=== PATIENT | female | born 1955 | race American Indian/Alaskan Native ===

== ENCOUNTER 2017-11-19 05:16 | Emergency (ER) | payer OTHER ==
[2017-11-19 05:37] VITALS: BP 156/81; PULSE 62; RESP 18; TEMP 98.1; O2SAT 100
--- NOTE | 2017-11-19 05:48 | ED PDOC ---
Arrival/HPI - General Chief Complaint: Finger,Hand,&Wrist Time Seen by Provider: 11/19/17 05:39 Historian: Patient - History of Present Illness Narrative History of Present Illness (Text): 11/19/17 05:46 A 62 year old female presents to the emergency department complaining of right wrist pain. 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 Reports pain to palm and surface of wrist. Patient denies any other complaints at this time. Symptom Onset: Sudden Symptom Course: Unchanged Activities at Onset: Light Context: Work Past Medical History - Provider Review Nursing Documentation Reviewed: Yes - Psychiatric Hx Psychophysiologic Disorder: No Hx Substance Use: No Family/Social History - Physician Review Nursing Documentation Reviewed: Yes Family/Social History: No Known Family HX Smoking Status: Never Smoked Hx Alcohol Use: No Hx Substance Use: No Allergies/Home Meds Allergies/Adverse Reactions: Allergies No Known Allergies Allergy (Verified 11/19/17 05:53) Home Medications: Home Meds Medication Instructions Recorded Confirmed No Known Home Med 11/19/17 11/19/17 Review of Systems - Physician Review All systems were reviewed & negative as marked: Yes - Review of Systems Constitutional: absent: Fevers Musculoskeletal: Other (right wrist pain) Physical Exam Vital Signs Reviewed: Yes Vital Signs Temp Pulse Resp BP Pulse Ox 11/19/17 05:36 98.1 F 62 18 156/81 H 100 Temperature: Afebrile Blood Pressure: Hypertensive Pulse: Regular Respiratory Rate: Normal Appearance: Positive for: Well-Appearing, Non-Toxic, Comfortable Pain Distress: None Mental Status: Positive for: Alert and Oriented X 3 - Systems Exam Head: Present: Atraumatic, Normocephalic Pupils: Present: PERRL Extroacular Muscles: Present: EOMI Conjunctiva: Present: Normal Mouth: Present: Moist Mucous Membranes Neck: Present: Normal Range of Motion Respiratory/Chest: Present: Clear to Auscultation, Good Air Exchange. No: Respiratory Distress, Accessory Muscle Use Cardiovascular: Present: Regular Rate and Rhythm, Normal S1, S2. No: Murmurs Abdomen: Present: Normal Bowel Sounds. No: Tenderness, Distention, Peritoneal Signs Back: Present: Normal Inspection Upper Extremity: Present: Other (no right wrist tenderness; pain with ROM) Lower Extremity: Present: Normal Inspection. No: Edema Neurological: Present: GCS=15, CN II-XII Intact, Speech Normal Skin: Present: Warm, Dry, Normal Color. No: Rashes Psychiatric: Present: Alert, Oriented x 3, Normal Insight, Normal Concentration Medical Decision Making ED Course and Treatment: 11/19/17 05:45 Impression: A 62 year old female with right wrist pain. Plan: -- Radiology right wrist -- Radiology right hand -- Motrin -- Reassess and disposition Progress Notes: 11/19/17 06:30 Xray of right hand- No fractures or dislocations, as read by me. Xray of right wrist- No fracture or dislocations, as read by me. - RAD Interpretation Radiology Orders: 11/19/17 05:56 HAND RIGHT 3 VIEWS [RAD] Stat WRIST, RIGHT 3 VIEWS [RAD] Stat - Medication Orders Current Medication Orders: Discontinued Medications Ibuprofen (Motrin Tab) 800 mg PO STAT STA Stop: 11/19/17 05:56 Last Admin: 11/19/17 06:05 Dose: 800 mg - Scribe Statement The provider has reviewed the documentation as recorded by the Eliel Callejas Provider Scribe Attestation: All medical record entries made by the Scribe were at my direction and personally dictated by me. I have reviewed the chart and agree that the record accurately reflects my personal performance of the history, physical exam, medical decision making, and the department course for this patient. I have also personally directed, reviewed, and agree with the discharge instructions and disposition. Disposition/Present on Arrival - Present on Arrival Any Indicators Present on Arrival: No History of DVT/PE: No History of Uncontrolled Diabetes: No Urinary Catheter: No History of Decub. Ulcer: No History Surgical Site Infection Following: None - Disposition Have Diagnosis and Disposition been Completed?: Yes Diagnosis: Right wrist sprain Disposition: HOME/ ROUTINE Disposition Time: 06:34 Patient Plan: Discharge Condition: GOOD Discharge Instructions (ExitCare): Wrist Sprain (DC) Additional Instructions: Mrs Reyes- It was a pleasure to care for you today. Please wear the splint for protection. Follow up with orthopedics [[facility]] [phone]. Motrin is ok for pain. Return to us if any problems. Jaime- Dr. Troy Barreto Forms: [employer] (Amharic)
--- NOTE | 2017-11-19 08:08 | RAD ---
PROCEDURE: Right Hand Radiographs. HISTORY: ALTERCATION AT WORK COMPARISON: None. FINDINGS: BONES: No fracture JOINTS: Second and 3rd DIP arthritic changes - osteophytosis and tiny subcortical cysts SOFT TISSUES: Normal. OTHER FINDINGS: None. IMPRESSION: No fracture. No dislocation. Arthrosis
--- NOTE | 2017-11-19 08:10 | RAD ---
PROCEDURE: Right Wrist Radiographs. HISTORY: ALTERCATION AT WORK COMPARISON: None. FINDINGS: BONES: No fracture JOINTS: No dislocation. Tiny subarticular cyst at the triquetrum- 5th metatarsal base incidentally noted. SOFT TISSUES: Normal. OTHER FINDINGS: None. IMPRESSION: No fracture or dislocation
== END 2017-11-19 06:55 | disposition home or self-care (01) ==
LOC: ED 05:16
DX: S63.501A Unspecified sprain of right wrist, initial encounter (principal); X58.XXXA Exposure to other specified factors, initial encounter; Y92.239 Unspecified place in hospital as the place of occurrence of the external cause; Y99.0 Civilian activity done for income or pay

== ENCOUNTER 2018-08-01 19:23 | Emergency (ER) | payer MEDICAID, OTHER ==
[2018-08-01 19:23] VITALS: BMI 38.4
--- NOTE | 2018-08-01 19:37 | ED PDOC ---
Arrival/HPI - General Historian: Patient - History of Present Illness Narrative History of Present Illness (Text): 08/01/18 19:36 Patient is a 62 year old female with past medical history of major depressive disorder who presents to the emergency department s/p fall. Patient states that she was stepping out of the car when she fell on uneven pavement. She reports falling on her left knee and right hand. She denies any head trauma, or loss of consciousness. Currently reports having left knee pain, 7/10 on pain scale. Denies any radiation. Offers no other complaints at this time. Allergies: Penicillin Medications: Denies Medical History: Major depressive disorder Surgical History: Right knee surgery, hysterectomy, left lumpectomy Social History: Denies alcohol, tobacco, drug use Family History: Mother - ; Father - Time/Duration: Prior to Arrival Symptom Onset: Sudden Severity Level: 7 Context: Tripped <Valentina Hernandez - Last Filed: 08/01/18 21:31> <Kiko Medina - Last Filed: 08/02/18 03:15> - General Chief Complaint: Lower Extremity Problem/Injury Time Seen by Provider: 08/01/18 19:25 Past Medical History - Provider Review Nursing Documentation Reviewed: Yes - Tetanus Immunization Tetanus Immunization: Unknown - Cardiac Hx Cardiac Disorders: No - Pulmonary Hx Respiratory Disorders: No - Neurological Hx Neurological Disorder: No - HEENT Hx HEENT Disorder: No - Renal Hx Renal Disorder: No - Endocrine/Metabolic Hx Endocrine Disorders: No - Hematological/Oncological Hx Blood Disorders: No - Integumentary Hx Dermatological Disorder: No - Musculoskeletal/Rheumatological Hx Musculoskeletal Disorders: Yes ('PAIN IN RIGHT KNEE FOR ABOUT A YEAR") Hx Falls: No - Gastrointestinal Hx Gastrointestinal Disorders: No - Genitourinary/Gynecological Hx Genitourinary Disorders: No - Psychiatric Hx Psychophysiologic Disorder: No Hx Substance Use: No - Surgical History Hx Hysterectomy: Yes - Anesthesia Hx Anesthesia: Yes Hx Anesthesia Reactions: No Hx Malignant Hyperthermia: No <Valentina Hernandez - Last Filed: 08/01/18 21:31> Family/Social History - Physician Review Nursing Documentation Reviewed: Yes Family/Social History: Unknown Family HX Smoking Status: Never Smoked Hx Alcohol Use: Yes (Occasional) Hx Substance Use: No <Valentina Hernandez - Last Filed: 08/01/18 21:31> Allergies/Home Meds <Valentina Hernandez - Last Filed: 08/01/18 21:31> <Kiko Medina - Last Filed: 08/02/18 03:15> Allergies/Adverse Reactions: Allergies Penicillins Allergy (Verified 08/01/18 19:36) ANAPHYLAXIS Home Medications: Home Meds Medication Instructions Recorded Confirmed Ibuprofen [Motrin Tab] 200 mg PO PRN PRN 02/14/15 02/14/15 RX: Meloxicam 7.5 mg PO PRN PRN 02/14/15 02/14/15 Review of Systems - Physician Review All systems were reviewed & negative as marked: Yes - Review of Systems Constitutional: Normal. absent: Fatigue, Fevers Eyes: Normal. absent: Vision Changes ENT: Normal. absent: Hearing Changes Respiratory: Normal. absent: SOB, Cough, Wheezing Cardiovascular: Normal. absent: Chest Pain, Palpitations Gastrointestinal: Normal. absent: Abdominal Pain, Constipation, Diarrhea, Nausea, Vomiting Genitourinary Female: Normal. absent: Dysuria Musculoskeletal: Other (Knee pain) Neurological: Normal. absent: Headache, Dizziness <Valentina Hernandez - Last Filed: 08/01/18 21:31> Physical Exam Vital Signs Reviewed: Yes Temperature: Afebrile Blood Pressure: Hypertensive Pulse: Regular Respiratory Rate: Normal Appearance: Positive for: Well-Appearing, Comfortable Pain Distress: Mild Mental Status: Positive for: Alert and Oriented X 3 - Systems Exam Head: Present: Atraumatic, Normocephalic Extroacular Muscles: Present: EOMI Conjunctiva: Present: Normal Mouth: Present: Moist Mucous Membranes Respiratory/Chest: Present: Clear to Auscultation, Good Air Exchange. No: Respiratory Distress, Accessory Muscle Use Cardiovascular: Present: Regular Rate and Rhythm, Normal S1, S2 Abdomen: Present: Normal Bowel Sounds. No: Tenderness Upper Extremity: Present: Normal ROM, NORMAL PULSES, Other (Right hand: no abrasions, intact pulses hand ham curer strength 5/5). No: Cyanosis, Edema Lower Extremity: Present: NORMAL PULSES, Other (left knee: +skin abrasions, mild knee swelling, full ROM, ). No: CALF TENDERNESS Skin: Present: Warm, Dry, Normal Color Psychiatric: Present: Alert, Oriented x 3 <Valentina Hernandez - Last Filed: 08/01/18 21:31> Vital Signs Temp Pulse Resp BP Pulse Ox 08/01/18 21:40 98 F 76 18 159/70 H 98 08/01/18 19:23 98.1 F 62 18 163/90 H 99 <Kiko Medina - Last Filed: 08/02/18 03:15> Medical Decision Making ED Course and Treatment: 08/01/18 19:57 Patient seen and examined at bedside. Patient is s/p fall on her left knee and right hand. On exam she has left knee tenderness and swelling. We will order Left knee xray, right hand/wrist x ray, Motrin 600mg PO x 1. 08/01/18 21:15 Imaging reviewed. Skin abrasion on left knee cleaned with normal saline, bacitracin and bandaid applied. Patient discharged, instructed to follow up with PMD outpatient. - RAD Interpretation Narrative RAD Interpretations (Text): 08/01/18 21:15 Left Knee Xray: no acute fracture Right hand Xray: no acute fracture Right wrist Xray: no acute fracture Nursery Rn: ED Physician <Valentina Hernandez - Last Filed: 08/01/18 21:31> ED Course and Treatment: Seen and examined with resident. 62 y/o F p/w hand and knee pain s/p fall. On exam, L knee abrasion. - RAD Interpretation Radiology Orders: 08/01/18 19:49 HAND RIGHT 3 VIEWS [RAD] Stat KNEE LEFT 2 VIEWS (AP & LAT) [RAD] Stat WRIST, RIGHT 3 VIEWS [RAD] Stat - Medication Orders Current Medication Orders: Discontinued Medications Ibuprofen (Motrin Tab) 600 mg PO STAT STA Stop: 08/01/18 19:54 Last Admin: 08/01/18 20:21 Dose: 600 mg MAR Pain/Vitals Document 08/01/18 20:21 VIGNESH (Rec: 08/01/18 20:21 VIGNESH [id number]) Pain Reassessment Is This A Pain ReAssessment? Yes Location Left, Right or Bilateral Left Pain Location Body Site Knee Description Intermittent <Kiko Medina - Last Filed: 08/02/18 03:15> Disposition/Present on Arrival - Present on Arrival Any Indicators Present on Arrival: No History of DVT/PE: No History of Uncontrolled Diabetes: No Urinary Catheter: No History Surgical Site Infection Following: None - Disposition Have Diagnosis and Disposition been Completed?: Yes Disposition Time: 21:24 Patient Plan: Discharge <Valentina Hernandez - Last Filed: 08/01/18 21:31> <Kiko Medina - Last Filed: 08/02/18 03:15> - Disposition Diagnosis: Abrasion of left knee Disposition: HOME/ ROUTINE Condition: GOOD Discharge Instructions (ExitCare): Skin Abrasions, Wound Care (DC) Additional Instructions: - Keep wound clean, you can take motrin as needed for pain - Follow up with PMD outpatient Prescriptions: Ibuprofen [Motrin] 600 mg PO Q6H #12 tab Forms: [employer] (Emirati), WORK NOTE
[2018-08-01 19:38] VITALS: RESP 18
[2018-08-02 02:45] VITALS: BP 159/70; PULSE 76; TEMP 98; O2SAT 98
== END 2018-08-01 21:55 | disposition home or self-care (01) ==
LOC: ED 19:23
DX: S80.212A Abrasion, left knee, initial encounter (principal); W19.XXXA Unspecified fall, initial encounter; Y92.480 Sidewalk as the place of occurrence of the external cause

== ENCOUNTER 2019-01-06 19:53 | Emergency (ER) | payer OTHER ==
[2019-01-06 20:08] VITALS: BMI 31.6
[2019-01-06 20:13] VITALS: BP 155/85; PULSE 80; RESP 18; TEMP 98.6; O2SAT 99
--- NOTE | 2019-01-06 20:53 | ED PDOC ---
Arrival/HPI - General Chief Complaint: Lower Extremity Problem/Injury Time Seen by Provider: 01/06/19 20:14 Historian: Patient - History of Present Illness Narrative History of Present Illness (Text): 01/06/19 20:50 63 year old female who presents to the ED complaining of right knee pain today with associated swelling. Patient denies any recent trauma/injury. Patient notes she has a history of fluid in the knee in the past, which required drainage by an orthopedic surgeon at [facility] 3 years prior. Patient denies any fever, chills, numbness/weakness/tingling in the extremity, decreased range of motion, other injury, or any other complaints. Time/Duration: Other (today) Symptom Onset: Gradual Symptom Course: Unchanged Activities at Onset: Light Context: Home Past Medical History - Provider Review Nursing Documentation Reviewed: Yes - Tetanus Immunization Tetanus Immunization: Unknown - Cardiac Hx Cardiac Disorders: No - Pulmonary Hx Respiratory Disorders: No - Neurological Hx Neurological Disorder: No - HEENT Hx HEENT Disorder: No - Renal Hx Renal Disorder: No - Endocrine/Metabolic Hx Endocrine Disorders: No - Hematological/Oncological Hx Blood Disorders: No - Integumentary Hx Dermatological Disorder: No - Musculoskeletal/Rheumatological Hx Musculoskeletal Disorders: Yes ('PAIN IN RIGHT KNEE FOR ABOUT A YEAR") Hx Falls: No - Gastrointestinal Hx Gastrointestinal Disorders: No - Genitourinary/Gynecological Hx Genitourinary Disorders: No - Psychiatric Hx Psychophysiologic Disorder: No Hx Substance Use: No - Surgical History Hx Hysterectomy: Yes Hx Orthopedic Surgery: Yes (R knee) - Anesthesia Hx Anesthesia: Yes Hx Anesthesia Reactions: No Hx Malignant Hyperthermia: No Family/Social History - Physician Review Nursing Documentation Reviewed: Yes Family/Social History: Unknown Family HX Smoking Status: Never Smoked Hx Alcohol Use: Yes (Occasional) Frequency of alcohol use: Socially Hx Substance Use: No Allergies/Home Meds Allergies/Adverse Reactions: Allergies Penicillins Allergy (Verified 01/06/19 20:14) ANAPHYLAXIS Home Medications: Home Meds Medication Instructions Recorded Confirmed Ibuprofen [Motrin Tab] 200 mg PO PRN PRN 02/14/15 02/14/15 Meloxicam 7.5 mg PO PRN PRN 02/14/15 02/14/15 Review of Systems - Physician Review All systems were reviewed & negative as marked: Yes - Review of Systems Constitutional: absent: Fevers Musculoskeletal: Arthralgias Neurological: absent: Focal Weakness Physical Exam Vital Signs Reviewed: Yes Vital Signs Temp Pulse Resp BP Pulse Ox 01/06/19 20:13 98.6 F 80 18 155/85 H 99 Temperature: Afebrile Blood Pressure: Hypertensive Pulse: Regular Respiratory Rate: Normal Appearance: Positive for: Well-Appearing, Non-Toxic, Comfortable Pain Distress: None Mental Status: Positive for: Alert and Oriented X 3 - Systems Exam Lower Extremity: Present: NORMAL PULSES, Normal ROM, Tenderness (Effusion to right knee with mild tenderness), Neurovascularly Intact, Capillary Refill < 2 s. No: Edema, Cyanosis, Deformity, Temperature Abnormalties Neurological: Present: GCS=15, CN II-XII Intact, Speech Normal Skin: Present: Warm, Dry, Normal Color. No: Rashes Psychiatric: Present: Alert, Oriented x 3, Normal Insight, Normal Concentration Medical Decision Making ED Course and Treatment: 01/06/19 20:50 Impression: 63 year old female complaining of right knee pain and swelling today. Plan: -- Matt Bandage -- Reassess and disposition Progress Notes: Diagnosis of knee effusion discussed with the patient in great detail. Advised to rest, ice and elevate the affected knee. Matt wrap applied. Advised to follow up with orthopedist in 1-2 days without fail. Advised to take [id number] NSAIDs for pain. Return to the emergency room at any time for any new or worsening symptoms. Patient states she fully agrees with and understands discharge instructions. States that she agrees with the plan and disposition. Verbalized and repeated discharge instructions and plan. I have given the patient opportunity to ask any additional questions. - PA / AVIATION ELECTRICAL TECHNICIAN / Resident Statement MD/DO has reviewed & agrees with the documentation as recorded. - Scribe Statement The provider has reviewed the documentation as recorded by the Eliel Chen Provider Scribe Attestation: All medical record entries made by the Eliel were at my direction and personally dictated by me. I have reviewed the chart and agree that the record accurately reflects my personal performance of the history, physical exam, medical decision making, and the department course for this patient. I have also personally directed, reviewed, and agree with the discharge instructions and disposition. Disposition/Present on Arrival - Present on Arrival Any Indicators Present on Arrival: No History of DVT/PE: No History of Uncontrolled Diabetes: No Urinary Catheter: No History of Decub. Ulcer: No History Surgical Site Infection Following: None - Disposition Have Diagnosis and Disposition been Completed?: Yes Diagnosis: Effusion, right knee Disposition: HOME/ ROUTINE Disposition Time: 20:50 Patient Plan: Discharge Condition: STABLE Discharge Instructions (ExitCare): Swollen Joints (DC) Additional Instructions: Thank you for letting us take care of you today. You were treated for right knee effusion. The emergency medical care you received today was directed at your acute symptoms. Rest, ice and elevate your knee. Take over the counter NSAIDs for pain. It may take several days for your symptoms to resolve. Return to the Emergency Department if your symptoms worsen, do not improve, or if you have any other problems. Please contact your orthopedic doctor in 2 days for re-evaluation and follow up / or call one of the physicians/clinics you have been referred to that are listed on the Patient Visit Information form that is included in your discharge packet. Bring any paperwork you were given at discharge with you along with any medications you are taking to your follow up visit. Our treatment cannot replace ongoing medical care by a primary care provider (PCP) outside of the emergency department. Thank you for allowing the [facility] team to be part of your care today. Referrals: Becky Martinez MD [Staff Provider] - Follow up with primary Forms: [employer] (Nepalese), WORK NOTE
== END 2019-01-06 21:11 | disposition home or self-care (01) ==
LOC: ED 19:53
DX: M25.461 Effusion, right knee (principal)